=== PATIENT | female | born 1995 | race Hispanic/Latino ===

== ENCOUNTER → 2018-12-24 | Outpatient (REF) | payer OTHER ==
[2018-12-24 12:17] LABS: BASO # 0.1 10^3/uL (0.0-0.2); BASO % 0.7 % (0.0-1.0); EOS # 0.4 10^3/uL (0.0-0.50); EOS % 4.5 % (0.0-3.0); HEMATOCRIT 38.4 % (36.0-47.0); HEMOGLOBIN 12.7 g/dl (12.0-15.5); LYMPH # 2.3 10^3/uL (1.5-6.5); LYMPH % 24.8 % (24.0-44.0); MEAN CORPUSCULAR HEMOGLOBIN 27.5 pg (27.0-33.0); MEAN CORPUSCULAR HGB CONC 33.1 g/dl (32.0-36.5); MEAN CORPUSCULAR VOLUME 83.3 fl (80.0-96.0); MONO # 0.8 10^3/uL (0.0-0.8); NEUTROPHILS # 5.5 10^3/uL (1.8-7.7); NEUTROPHILS % 60.5 % (36.0-66.0); PLATELET COUNT, AUTOMATED 285 10^3/uL (150-450); RED BLOOD COUNT 4.61 10^6/uL (4.00-5.40); WHITE BLOOD COUNT 9.1 10^3/uL (4.0-10.0)
[2018-12-24 12:45] LABS: ALBUMIN 3.6 GM/DL (3.2-5.2); ALT/SGPT 41 U/L (12-78); BILIRUBIN,TOTAL 0.1 MG/DL (0.2-1.0); BLOOD UREA NITROGEN 12 MG/DL (7-18); CALCIUM LEVEL 8.6 MG/DL (8.5-10.1); CARBON DIOXIDE LEVEL 24 MEQ/L (21-32); CHLORIDE LEVEL 108 MEQ/L (98-107); CREATININE FOR GFR 0.75 MG/DL (0.55-1.30); FREE T4 0.72 NG/DL (0.76-1.46); GLOMERULAR FILTRATION RATE > 60.0 (>60); GLUCOSE, FASTING 108 MG/DL (70-100); POTASSIUM SERUM 4.2 MEQ/L (3.5-5.1); PTH INTACT 51.3 PG/ML (18.5-88.0); SODIUM LEVEL 139 MEQ/L (136-145); TOTAL PROTEIN 7.4 GM/DL (6.4-8.2)
== END ==
LOC: M SFHCPLAZ 10:29
PROVIDERS: ATTEND Physician Assistant Medical
DX: F41.1 Generalized anxiety disorder (principal); E55.9 Vitamin D deficiency, unspecified; M79.601 Pain in right arm

== ENCOUNTER → 2019-01-06 | Outpatient (REF) | payer OTHER, MEDICAID | LOC: M LAB REF 16:47 | PROVIDERS: ATTEND Obstetrics & Gynecology | DX: Z34.83 Encounter for supervision of other normal pregnancy, third trimester (principal) ==

== ENCOUNTER 2019-01-27 14:56 | Inpatient (IN) | payer OTHER, MEDICAID ==
[~2019-01-27] VITALS: Ht 175.3 cm; Wt 98.2 kg
[2019-01-27] VITALS (10 sets, daily range): BP systolic 106–142; BP diastolic 51–83
[2019-01-27] MEDS ORDERED: LR 500 ML IV ONE (15:45)
[2019-01-27 16:17] LABS: HEMATOCRIT 38.6 % (36.0-47.0); HEMOGLOBIN 12.8 g/dl (12.0-15.5); MEAN CORPUSCULAR HEMOGLOBIN 27.8 pg (27.0-33.0); MEAN CORPUSCULAR HGB CONC 33.2 g/dl (32.0-36.5); MEAN CORPUSCULAR VOLUME 83.9 fl (80.0-96.0); PLATELET COUNT, AUTOMATED 162 10^3/uL (150-450); WHITE BLOOD COUNT 10.1 10^3/uL (4.0-10.0)
[2019-01-27] MEDS ORDERED: PRENTAB9 PO (16:27)
[2019-01-27 16:31] LABS: ALT/SGPT 26 U/L (12-78); BILIRUBIN,TOTAL 0.2 MG/DL (0.2-1.0); CREATININE FOR GFR 0.58 MG/DL (0.55-1.30); GLOMERULAR FILTRATION RATE > 60.0 (>60); LDH LACTATE DEHYDROGENASE 201 U/L (84-246); URIC ACID 4.1 MG/DL (2.6-6.0)
[2019-01-27] MEDS: miSOPROStol 50 MCG 1/2 TAB (S0191) PO SCH (16:31)
[2019-01-28] VITALS (46 sets, daily range): BP systolic 116–169; BP diastolic 55–96
[2019-01-28] MEDS: miSOPROStol 50 MCG 1/2 TAB (S0191) PO SCH ×2 (00:21→04:27)
[2019-01-28] MEDS ORDERED: OXYTOCIN DRIP 30 UNITS in IV 1 EA IV SCH ×2 (08:00→16:13)
[2019-01-28] MEDS: LR 1,000 ML IV SCH ×2 (08:33→14:10)
[2019-01-28 08:38] LABS: HEMATOCRIT 37.4 % (36.0-47.0); HEMOGLOBIN 12.4 g/dl (12.0-15.5); MEAN CORPUSCULAR HEMOGLOBIN 27.2 pg (27.0-33.0); MEAN CORPUSCULAR HGB CONC 33.2 g/dl (32.0-36.5); PLATELET COUNT, AUTOMATED 155 10^3/uL (150-450); RED BLOOD COUNT 4.56 10^6/uL (4.00-5.40)
[2019-01-28 08:57] LABS: ALT/SGPT 23 U/L (12-78); BILIRUBIN,TOTAL 0.2 MG/DL (0.2-1.0); CREATININE FOR GFR 0.58 MG/DL (0.55-1.30); GLOMERULAR FILTRATION RATE > 60.0 (>60); LDH LACTATE DEHYDROGENASE 215 U/L (84-246); URIC ACID 3.8 MG/DL (2.6-6.0)
[2019-01-28] MEDS ORDERED: FENTANYL 2MCG/ML ROPIVACAINE 0.2% IN 0.9% NACL 100ML IVBAG As Ordered ONE (09:26)
[2019-01-28] MEDS ORDERED: ONDANSETRON 4MG/2ML VIAL (J2405) IV PRN (10:15)
[2019-01-28] MEDS ORDERED: FENTANYL/ROPIVACAINE/NACL BAG 100 ML EPIDURAL SCH (10:15)
[2019-01-28] MEDS ORDERED: diphenhydrAMINE INJ 50MG/ML VIAL (J1200) IV PRN (10:15)
[2019-01-28] MEDS ORDERED: ePHEDrine SULFATE 25 MG/5 ML(5MG/ML) SYRINGE IV PRN (10:15)
[2019-01-28] MEDS ORDERED: REFRIGERATOR IV KEYS XX PRN (10:15)
[2019-01-28] MEDS ORDERED: NALOXONE INJ 0.4 MG/1 ML VIAL (J2310) IV PRN (10:15)
[2019-01-28] MEDS ORDERED: EPIDURAL COMMENT XX SCH (10:15)
[2019-01-28] MEDS ORDERED: EPIDURAL/PCA KEYS XX PRN (10:15)
[2019-01-28] MEDS ORDERED: LACTATED RINGER'S 1000 ML IV PRN (10:15)
[2019-01-28] MEDS ORDERED: MEASLES,MUMPS,RUBELLA VACCINE INJ (MMR-II) (90707) SC SCH (16:15)
[2019-01-28] MEDS ORDERED: DIBUCAINE 1% OINTMENT 30GM TOP PRN (16:15)
[2019-01-28] MEDS ORDERED: RHOGAM 300 MCG (1500 IU) INJ (J2790) IM SCH (16:15)
[2019-01-28] MEDS ORDERED: ACETAMINOPHEN TAB 650MG DOSE (2X325MG) PO PRN (16:15)
[2019-01-28] MEDS ORDERED: METHYLERGONOVINE MALEATE 0.2 MG TAB PO PRN (16:15)
[2019-01-28] MEDS ORDERED: ACETAMINOPHEN 500 MG TAB PO PRN (16:15)
[2019-01-28] MEDS ORDERED: DOCUSATE SODIUM 100 MG CAP PO PRN (16:15)
[2019-01-28] MEDS ORDERED: IBUPROFEN 600 MG TAB PO PRN (16:15)
--- NOTE | 2019-01-28 17:28 | DN ---
DATE: 01/28/2019 Giana is a 23-year-old female, 2, para 1-0-0-1, who was admitted at 40 weeks gestation for induction. She underwent four doses of Cytotec followed by artificial rupture of membranes and Pitocin augmentation. After an epidural, she delivered a live female infant in left occiput anterior position. scores 9/9, weight 6 pounds 4 ounces. Placenta delivered spontaneously intact. Three-vessel cord. Perineum, vagina and cervix inspected. No laceration noted. Estimated blood loss 250 mL. Both mother and baby in stable condition.
[2019-01-29] MEDS: IBUPROFEN 800 MG TAB PO PRN ×2 (00:20→20:16)
[2019-01-29 06:00] VITALS: BP 141/62
--- NOTE | 2019-01-29 07:33 | HPE ---
DATE OF ADMISSION: 01/27/2019 Giana is a 23-year-old female 2, para 1-0-0-1 with an EDC of , EGA of 40 weeks gestation who has been evaluated the office for mild elevated blood pressure. Upon evaluation in the office, she was found to have significantly elevated blood pressure, complaining of mild blurred vision. No upper quadrant pain. No headache. Good movement. Her record was reviewed. At this point, a decision was made to admit the patient for an induction. LABORATORIES: Blood type is A+, rubella immune, hepatitis negative, HIV negative, GC and chlamydia negative, 1-hour sugar testing was within normal limits. Her Group B streptococcus (GBS) is negative. PAST MEDICAL HISTORY: Denies. PAST SURGICAL HISTORY: Denies. SOCIAL HISTORY: She is . Denies any alcohol, drug or cigarette smoking. REVIEW OF SYSTEMS: Unremarkable. MEDICATIONS: vitamin. ALLERGIES: No known drug allergies. PHYSICAL EXAMINATION: Obese female in no acute distress. Abdomen: Soft, nontender, nondistended. Extremities: No clubbing, cyanosis or edema. Vaginal exam: Closed, thick, posterior, fetus at -3 station, vertex position. Tracing reviewed, category 1 tracing. ASSESSMENT 1. Intrauterine at 40 weeks gestation. 2. induced hypertension, cannot rule out preeclampsia. PLAN: Admit to labor and delivery. Routine labs sent. Induction process discussed. We will proceed with Cytotec induction followed by possible artificial rupture of membranes and Pitocin. Pain management also discussed. The patient opts for an epidural. We will continue to monitor. Anticipate delivery.
[2019-01-29] MEDS: PRENATAL VITAMINS CHEWABLE TABLET PO SCH (07:39)
--- NOTE | 2019-01-29 08:28 | IPNPDOC ---
Text Note Date of Service The patient was seen on 01/29/19. NOTE Feels well. Adequate pain management. Bottle feeding. Voiding VSS, afebrile, normotensive Breasts soft Fundus firm, NT down 1 FB Lochia rubra light without odor Perineum intact PP #1 Routine care. Anticipate D/C in am VS,Fishbone, I+O VS, Fishbone, I+O Vital Signs Date Time Temp Pulse Resp B/P (MAP) Pulse Ox O2 Delivery O2 Flow Rate FiO2 01/29/19 06:00 98.3 96 18 141/62 (88) 01/27/19 19:35 Room Air 01/27/19 15:28 99 l I&O- Last 24 Hours up to 6 AM 01/29/19 06:00 Intake Total 4250 ml Output Total 2750 ml Balance 1500 ml Em Espinal CNM Jan 29, 2019 08:28
[2019-01-29 10:22] VITALS: BP 132/70
[2019-01-29 18:00] VITALS: BP 135/84
[2019-01-29 22:00] VITALS: BP 130/73
[2019-01-30 02:00] VITALS: BP 140/83
[2019-01-30 06:00] VITALS: BP 139/78
[2019-01-30] MEDS: PRENATAL VITAMINS CHEWABLE TABLET PO SCH (08:40)
[2019-01-30 09:53] VITALS: BP 135/70
[2019-01-30] MEDS ORDERED: IBUP80TA PO (11:31)
== END 2019-01-30 12:40 | disposition home or self-care (01) | DRG 560 ==
LOC: M NBNUR 14:56 → M LDI 15:09 → M OBS 01-28 18:29
PROVIDERS: ADMIT Obstetrics & Gynecology; ATTEND Obstetrics & Gynecology
PROC: 10E0XZZ Delivery of Products of Conception, External Approach (ICD-10-PCS; principal; 2019-01-28)
PROC: 3E0P7GC Introduction of Other Therapeutic Substance into Female Reproductive, Via Natural or Artificial Opening (ICD-10-PCS; 2019-01-28)
PROC: 10907ZC Drainage of Amniotic Fluid, Therapeutic from Products of Conception, Via Natural or Artificial Opening (ICD-10-PCS; 2019-01-28)
DX: O13.4 Gestational [pregnancy-induced] hypertension without significant proteinuria, complicating childbirth (principal); O99.214 Obesity complicating childbirth; E66.9 Obesity, unspecified; Z3A.40 40 weeks gestation of pregnancy; Z37.0 Single live birth

== ENCOUNTER → 2019-04-15 | Outpatient (REF) | payer OTHER ==
[~2019-04-15] MED LIST: IBUP80TA PO; PRENTAB9 PO
[2019-04-15 14:36] LABS: FREE T4 0.88 NG/DL (0.76-1.46); THYROID STIMULATING HORMONE 1.94 uIU/ML (0.358-3.740)
== END ==
LOC: M SFHCPLAZ 10:28
PROVIDERS: ATTEND Physician Assistant Medical
DX: E03.9 Hypothyroidism, unspecified (principal)